=== PATIENT | female | born 1930 | race Caucasian/White ===

== ENCOUNTER 2016-12-11 12:08 | Inpatient (IN) | payer OTHER ==
[~2016-12-11] VITALS: Ht 162.6 cm; Wt 81.6 kg
--- NOTE | ~2016-12-11 | EKG ---
[address] [address] ELECTROCARDIOGRAM REPORT Name: BETHANIE HOYOS Room #: 536-P ADM IN M.R.#: [id number] Admission: 12/11/16 Attend Phys: Jeronimo Maldonado MD Discharge: Date of : 28 Report #: [id number] THIS REPORT FOR: //name// [facility] ED Test Date: 2016-12-11 Test Time: 15:24:36 Pat Name: BETHANIE HOYOS Department: Room: 536 Gender: F Chemical Sales Representative: thu : 1930 Requested By: Johnny Ye Order Number: [id number] MD: Walter De La Cruz Measurements Intervals Zap Rate: 61 P: 48 IN: 189 QRS: 27 QRSD: 88 T: 73 QT: 429 QTc: 432 Interpretive Statements Sinus rhythm No significant abnormality Compared to ECG 06/02/2009 12:31:14 No significant changes Electronically Signed On 12-12-2016 15:57:17 CDT by Walter De La Cruz [email or web address] <ELECTRONICALLY SIGNED> By: Walter De La Cruz MD, [facility] 12/12/16 1557 1524 1524 Walter De La Cruz MD, [facility] /EPI
--- NOTE | ~2016-12-11 | HC ---
[facility] [place] [address] CONSULTATION Name: BETHANIE HOYOS Room #: 536-P ADM IN M.R.#: [id number] Admission: 12/11/16 Attend Phys: Jeronimo Maldonado MD Discharge: Date of : 28 Report #: [id number] THIS REPORT FOR: //name// CC: Jeronimo Maldonado CHIEF COMPLAINT: Right hip pain. HISTORY OF PRESENT ILLNESS: The patient is a very pleasant 86-year-old female seen today with her daughter at her bedside. The patient was admitted through the [facility]. Reportedly, she fell some time Cristóbal evening while walking her dog. The patient reports that she does not ambulate with any assistive device. She is able to get up after her fall and walk back to bed. Upon waking, she was unable to ambulate and was found on the floor at approximately 11:00 a.m. at [facility]. Daughter reports that she has had some balance issues but refuses to use any assistive device. They deny any other injuries. She denies frequent falls, but does report difficulty with balance. PAST MEDICAL HISTORY: A triple bypass in 2002. PAST SURGICAL HISTORY: Hysterectomy, corneal transplant times 2. 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 History of GERD. PRIMARY PHYSICIAN: Jeronimo Maldonado MD CURRENT MEDICATIONS: Please see current MAR. ALLERGIES: PENICILLIN. SOCIAL HISTORY: The patient resides at [facility], occasionally drinks alcohol. Denies tobacco use. PHYSICAL EXAMINATION: GENERAL: The patient is alert and oriented, answering questions appropriately. MOST RECENT VITAL SIGNS: Temperature 97.9, pulse 86, respirations 16, BP 124/77, O2 sats 93% on room air. Height 5 feet 4 inches, weight 180. UPPER EXTREMITIES: The patient has spontaneous movement in the upper extremities. She reports no pain or tenderness. There is a small wound on the lateral aspect of her right arm that is difficult to tell if this is acute or more chronic in nature. She seems to repetitively pick at this. There is no significant surrounding erythema. HIP AND PELVIS: Pelvis is stable to AP and lateral compression. She is tender about the right hip globally. Range of motion is limited due to pain in the more distal thigh, knee, leg. Foot and ankle are otherwise nontender. LOWER EXTREMITIES: Left lower extremity demonstrates no tenderness. Bilateral bunions are noted as well as some small joint arthropathy. Trace edema in the lower leg. She reports intact sensation to light touch. Brisk capillary refill is noted. She was able to flex and extend [place] [address] CONSULTATION Name: BETHANIE HOYOS Room #: 536-P [facility] IN M.R.#: [id number] Admission: 12/11/16 Attend Phys: Jeronimo Maldonado MD Discharge: Date of : 29 Report #: [id number] DIAGNOSTIC DATA: Radiographs and CT scan reveal basicervical femoral neck fracture with extension into the greater trochanter that is nondisplaced. LABORATORY DATA: Hemoglobin of 14.6. UA consistent with urinary tract infection. IMPRESSION: 1. Right hip pain, intertrochanteric/basicervical femoral neck fracture, status post fall. 2. Multiple medical comorbidities. PLAN: The patient has been seen by Dr. Jeronimo Maldonado. Nurses' report that he has stated that she is stable to proceed with operative intervention if they desire this. His actual history and physical is not available for review currently. We have discussed treatment options. We have reviewed the risks, benefits, alternatives and potential complications of her injury as well as treatment. The patient and her daughter wished to proceed with an intramedullary nailing of her right hip fracture. We have discussed this may allow her bear weight sooner than attempting hip pinning due to the trochanteric extension. We discussed with her balance issues. I would like physical therapy to reassess this postoperatively, and likely the patient will require utilization of an assistive device such as a walker. We discussed therapy and family independence case manager can help assess her level of needs postoperatively, but she may require more skill type rehabilitation postoperatively. Questions were encouraged, all were answered. They demonstrated an understanding of the above-noted choices and wished to proceed with an intramedullary nailing hopefully later this morning pending OR availability. <ELECTRONICALLY SIGNED> By: Nav Bergman MD 12/14/16 1025 1011 [id number] Nav Bergman MD /nt
--- NOTE | ~2016-12-11 | O ---
[facility] [place] [address] [place] [address] OPERATIVE REPORT Name: BETHANIE HOYOS Room #: 536-P ADM IN M.R.#: [id number] Admission: 12/11/16 Attend Phys: Jeronimo Maldonado MD Discharge: Date of : 29 Report #: [id number] THIS REPORT FOR: //name// CC: Jeronimo Maldonado DATE OF SERVICE: 12/12/2016 PREOPERATIVE DIAGNOSIS: Right basicervical/intertrochanteric femur fracture with extension into the greater trochanter. POSTOPERATIVE DIAGNOSIS: Right basicervical/intertrochanteric femur fracture with extension into the greater trochanter. PROCEDURE PERFORMED: Right hip intramedullary nailing. SURGEON: Nav Bergman M.D. DATA MODELING ARCHITECT: Shweta Tavares PA-C. ANESTHESIA: General per LMA. FLUIDS: Please see anesthesia records. ESTIMATED BLOOD LOSS: 25 mL approximately. IMPLANTS UTILIZED: Synthes short TFN nail, 11 mm with 85 mm helical blade. DESCRIPTION OF PROCEDURE: After proper identification of the patient and operative site in preoperative holding area, the operative site was signed by myself. Prophylactic antibiotics given. The patient elected for general anesthesia. After induction of satisfactory general anesthesia, she was carefully positioned on the [place] fracture table. Well padded foot stabilization was utilized. Legs were scissored. Intraoperative C-arm revealed anatomic alignment of the fracture. The limb was sterilely prepped and draped in usual manner. Final skin draping was with an [place] isolation drape. Qualified ice cream freezer assistant was utilized throughout the entire procedure to aid in patient limb positioning, visualization and retraction as well as closure and dressing application. An incision proximal to the greater trochanter was planned. Skin was incised sharply. Full thickness skin flaps were developed, an awl was placed about the tip of the greater trochanter, it was carefully advanced into the femur. Its position was checked with C-arm. Next, a long guidewire was inserted down the intramedullary aspect of the femur and the awl was used to ream this proximally. An 11 mm nail was chosen and this was carefully impacted over the guidewire into position and through a separate more distally based incision, the helical blade drill sleeves were advanced to the lateral cortex of the femur. A guidewire was inserted into the femoral head while checking in the [address] [address] OPERATIVE REPORT Name: BETHANIE HOYOS Room #: 536-P [facility] IN ..#: [id number] Admission: 12/11/16 Attend Phys: Jeronimo Maldonado MD Discharge: Date of : 29 Report #: [id number] AP and lateral planes. It was deemed to be in satisfactory position. The outer cortex was reamed, an 85 mm helical blade was chosen, it was carefully impacted into position. The fracture site remained nondisplaced in the AP and lateral planes, the helical blade was deemed to be extraarticular, proximal locking screw was tightened. There was a separate more distally based incision, a 38 mm distal locking screw was inserted. This had good purchase. Final implant images were taken with the insertion handle removed. Wounds were irrigated with normal saline. A #1 Vicryl was used to close the fascia, 2-0 Vicryl with subcutaneous layer, final skin closure was with burke. Sterile dressing was applied. At time of dictation, she was still in the operative suite and a sterile dressing had been applied. She was then awakened with anticipated discharge to the recovery room in stable condition. <ELECTRONICALLY SIGNED> By: Nav Bergman MD 12/14/16 1025 1253 1947 Nav Bergman MD /nt
--- NOTE | ~2016-12-11 | H ---
[facility] [place] [address] HISTORY AND PHYSICAL Name: BETHANIE HOYOS Room #: 536-P ADM IN M.R.#: [id number] Admission: 12/11/16 Attend Phys: Jeronimo Maldonado MD Discharge: Date of : 29 Report #: [id number] THIS REPORT FOR: //name// CC: Jeronimo Maldonado DATE OF SERVICE: 12/12/2016 DATE OF SERVICE: 12/12/2016 CHIEF COMPLAINT: Right hip pain. HISTORY OF PRESENT ILLNESS: The patient is an 86-year-old female known to me, who states she was walking her dog on Tuesday evening and tripped and fell, suffered some right hip pain. She was able to limp herself back to her room and went to bed. When she got up in the morning at 7 a.m., she slid out of bed, trying to go to the bathroom and went to the ground, could not bear weight. She denies any head injury. She denies any chest pain or palpation or syncope prior to her fall. She was unable to get herself up off the floor, did lay there for several hours until the facility checked on her approximately 4 hours later. PAST MEDICAL HISTORY: Significant for: 1. Mild dementia. 2. Corneal transplant on the right x 2 and on the left x 1. 3. Cataracts. 4. Coronary artery disease with bypass graft in the past. 5. Reflux. MEDICATIONS: Include omeprazole 20 mg b.i.d., fish oil daily, calcium plus D daily, Restasis drops daily, Systane drops daily, acyclovir b.i.d., aspirin 81 mg a day. ALLERGIES: PENICILLIN. SOCIAL HISTORY: She is a nonsmoker, drinks occasional alcohol. REVIEW OF SYSTEMS: CONSTITUTIONAL: She denies any fevers or chills. HEENT: No headaches. She has chronic visual changes. Oropharynx shows difficulty with swallowing. CHEST: No chest pain, tightness in chest, short of breath, cough or sputum production. GASTROINTESTINAL: No nausea, vomiting, diarrhea or constipation. GENITOURINARY: No burning or frequency. EXTREMITIES: Right hip pain. NEUROLOGIC: No new numbness or weakness. [facility] [address] [place] [address] HISTORY AND PHYSICAL Name: BETHANIE HOYOS Room #: 536-P [facility] IN [facility].#: [id number] Admission: 12/11/16 Attend Phys: Jeronimo Maldonado MD Discharge: Date of : 29 Report #: [id number] PHYSICAL EXAMINATION: VITAL SIGNS: Blood pressure ____, pulse is 75, respiratory rate 12. She is afebrile. Weighs 180 pounds. GENERAL: The patient is awake and alert, no acute distress. Her daughter was present with her as well for ____ questioning. She does answer full questions herself. HEENT: Her mucous membranes are moist. NECK: Supple, without adenopathy, thyromegaly or bruits. CHEST: Clear to auscultation bilaterally. CARDIOVASCULAR: Regular rhythm without murmur. ABDOMEN: Soft, no masses. Normal active bowel sounds, no hepatosplenomegaly. EXTREMITIES: Right leg is slightly foreshortened, externally rotated. Her pulses are intact. She can move the toes equally. Her sensory is grossly intact. DIAGNOSTIC DATA: EKG shows sinus rhythm with a rate of 50, no ST segment changes. This is unchanged from one previously. LABORATORY DATA: Sodium is 142, potassium 3.8, chloride 107, bicarbonate 23, BUN 15, creatinine 0.9, glucose is 126 and calcium is 9.3. WBC is 10.8, hemoglobin 14.6, hematocrit 42.9, platelet count 233, segs 80, lymphs 13, mono 6. Urinalysis shows specific gravity 1.025, blood 1+, nitrite positive, leukocytes 3+ with 25 white cells, packed with clumps, greater than [address] of the head shows atrophy with no acute ischemia or hemorrhage. X-ray of the pelvis shows no fractures. X-ray of the hip, there is questionable elucidated cortex ____ on the right, no overt fracture seen on the x-ray; however, CT shows subtle nondisplaced femoral neck and upper trochanteric fracture, ____. ASSESSMENT: 1. Right hip fracture intertrochanteric. Ortho is consulted, is cleared for surgery today. 2. Urinary tract infection, very mild. She was started on Rocephin in the ER. We will continue that here. 3. Mild dementia, stable. 4. Coronary artery disease, stable. No intervention at this time. 5. Reflux. We will start Protonix. 6. 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 Continue her drops. By: 0725 0939 Jeronimo Maldonado MD /nt
[~2016-12-11 12:08] MED LIST: ACYCLOVIR 200200 MG PO; ADULT LOW DOSE81 MG PO; CALCIUM 500 +1 EAC5 PO; DEXAMETHASONE 0.5 M1 OP; FISH OIL 1,001000 M2 PO; FISHOIL; FLAXSEED1000 MG PO; PRILOSEC 20 MG20 MG PO; RESTASIS1 EACH OPHTHALMIC; SYSTANE 0.3-0.1 EACH OP
[2016-12-11 12:33] LABS: ABSOLUTE NEUTROPHILS 8.7 thou/uL (1.4-8.2); BASOPHILS 0.3 % (0.0-2.0); HEMATOCRIT 42.9 % (37.0-47.0); HEMOGLOBIN 14.6 gm/dL (12.0-15.0); LYMPHOCYTES 13.5 % (24.0-44.0); MCH 30.2 pg (26.0-34.0); MCHC 34.1 g/dL (28.0-37.0); MCV 88.4 fL (80.0-100.0); MONOCYTES 6.2 % (1.0-8.0); PLATELET COUNT 233 thou/uL (150-400); RBC 4.85 mil/uL (4.20-5.00); RDW 13.8 % (10.5-14.5); WBC 10.8 thou/uL (4.0-11.0)
[2016-12-11 12:34] LABS: MANUAL DIFF NO
[2016-12-11 12:42] LABS: CALCIUM 9.3 mg/dL (8.5-10.1); CREATININE 0.9 mg/dL (0.6-1.0); POTASSIUM 3.8 mmol/L (3.5-5.1)
[2016-12-11 13:36] LABS: URINE BILIRUBIN NEGATIVE (Negative); URINE BLOOD 1+ (Negative); URINE COLOR YELLOW; URINE GLUCOSE-RANDOM* NEGATIVE (Negative); URINE KETONES NEGATIVE (Negative); URINE LEUKOCYTES-REFLEX 3+ (Negative); URINE PROTEIN (DIPSTICK) TRACE (Negative); URINE SPECIFIC GRAVITY 1.025 (1.003-1.035); URINE UROBILINOGEN 0.2 E.U./dl (0.2-1.0)
[2016-12-11 13:43] LABS: SQUAMOUS 0-3 Few /LPF (0-3)
[2016-12-11 13:44] LABS: CASTS None Seen /LPF (None Seen); CRYSTALS None Seen /LPF (None Seen); URINE RBC 0-2 Rare /HPF (0-2); URINE WBC-REFLEX >25 Many /HPF (0-5)
[2016-12-11 13:45] LABS: WBC CLUMPS Packed (None Seen)
[2016-12-11 16:14] VITALS: BP 142/69
[2016-12-11 19:16] VITALS: BP 127/81
[2016-12-12] VITALS (7 sets, daily range): BP systolic 124–142; BP diastolic 66–91
[2016-12-12 15:11] LABS: HEMOGLOBIN 15.3 gm/dL (12.0-15.0); MCH 30.3 pg (26.0-34.0); MCHC 33.2 g/dL (28.0-37.0); MCV 91.4 fL (80.0-100.0); RBC 5.04 mil/uL (4.20-5.00); WBC 12.2 thou/uL (4.0-11.0)
[2016-12-13] VITALS: BP 130/69
[2016-12-13 00:32] VITALS: BP 122/68
[2016-12-13 04:20] LABS: HEMATOCRIT 41.5 % (37.0-47.0); HEMOGLOBIN 13.7 gm/dL (12.0-15.0); MCH 30.1 pg (26.0-34.0); MCHC 33.1 g/dL (28.0-37.0); RBC 4.56 mil/uL (4.20-5.00); RDW 14.1 % (10.5-14.5); WBC 9.4 thou/uL (4.0-11.0)
[2016-12-13 05:45] LABS: CREATININE 0.9 mg/dL (0.6-1.0); POTASSIUM 3.8 mmol/L (3.5-5.1)
[2016-12-13 07:20] VITALS: BP 103/57
[2016-12-13 15:08] VITALS: BP 110/52
[2016-12-13 20:00] VITALS: BP 115/64
[2016-12-14 03:55] VITALS: BP 109/71
[2016-12-14 04:04] LABS: HEMATOCRIT 39.2 % (37.0-47.0); HEMOGLOBIN 13.3 gm/dL (12.0-15.0); MCH 30.4 pg (26.0-34.0); MCV 89.3 fL (80.0-100.0); RBC 4.39 mil/uL (4.20-5.00); RDW 13.8 % (10.5-14.5)
[2016-12-14] MEDS ORDERED: HYDROCODON-ACE1 EAC7 PO (07:35)
[2016-12-14 07:39] VITALS: BP 103/67
[2016-12-14] MEDS ORDERED: CEFDINIR300 MG PO (07:39)
== END 2016-12-14 12:11 | DRG 481 ==
LOC: ER 12:08 → 5S 14:54 → EROBS 14:54 → 5S 15:52
PROVIDERS: Family Medicine; Physician Assistant; Physician Assistant Surgical
PROC: 0QH636Z Insertion of Intramedullary Internal Fixation Device into Right Upper Femur, Percutaneous Approach (ICD-10-PCS; principal; 2016-12-12)
DX: S72.141A Displaced intertrochanteric fracture of right femur, initial encounter for closed fracture (principal); N39.0 Urinary tract infection, site not specified; F03.90 Unspecified dementia, unspecified severity, without behavioral disturbance, psychotic disturbance, mood disturbance, and anxiety; H40.9 Unspecified glaucoma; K21.9 Gastro-esophageal reflux disease without esophagitis; I25.10 Atherosclerotic heart disease of native coronary artery without angina pectoris; Z96.1 Presence of intraocular lens; W18.39XA Other fall on same level, initial encounter; Y93.01 Activity, walking, marching and hiking; Y92.89 Other specified places as the place of occurrence of the external cause; Z94.7 Corneal transplant status; Z88.0 Allergy status to penicillin; Z90.710 Acquired absence of both cervix and uterus; Z98.42 Cataract extraction status, left eye; Z98.41 Cataract extraction status, right eye; Z95.1 Presence of aortocoronary bypass graft; Y99.8 Other external cause status
CPT/HCPCS: 10785; 50010; 50101; 50133; 50386; 50635; 51412; 51538; 51817; 52145; 52146; 52304; 56525; 57092; 62110; 62900; 70005

== ENCOUNTER → 2018-04-28 | Outpatient (CLI) | payer OTHER ==
[~2018-04-28] MED LIST changes: +CEFDINIR300 MG PO; +HYDROCODON-ACE1 EAC7 PO
== END ==
LOC: RAD 09:37
DX: M25.552 Pain in left hip (principal)